=== PATIENT | female | born 1985 | race Caucasian/White ===

== ENCOUNTER 2024-01-08 09:30 | Day surgery (SDC) | payer OTHER ==
[~2024-01-08] VITALS: Ht 165.1 cm; Wt 76.0 kg
[~2024-01-08 09:30] MED LIST: EXCETAB32 PO; LIDOCAINE 2% 100MG/5ML SDV (FOR ANES.) As Ordered ONE; MIDAZOLAM INJ 2MG/2ML VIAL As Ordered ONE; ONDANSETRON 4MG 2ML VIAL As Ordered ONE; ROCURONIUM BROMIDE 50MG/5ML VIAL As Ordered ONE; fentaNYL 100 MCG/2 ML INJECTION As Ordered ONE; propofoL 200 MG/20 ML VIAL As Ordered ONE
[2024-01-08] MEDS ORDERED: LR 1,000 ML IV SCH ×2 (09:35→13:10)
[2024-01-08] MEDS ORDERED: SUGAMMADEX SODIUM 500 MG/5 ML VIAL (BRIDION) As Ordered ONE (09:37)
[2024-01-08] MEDS ORDERED: KETOROLAC 60MG 2ML VIAL As Ordered ONE (09:37)
[2024-01-08] MEDS ORDERED: ACETAMINOPHEN 1000MG 100ML IV BAG As Ordered ONE (09:37)
[2024-01-08] MEDS: OXYMETAZOLINE 0.05% NASAL SPRAY (AFRIN) As Ordered ONE (10:50)
[2024-01-08] MEDS: AMPICILLIN SOD/SULBACTAM SOD 3 GM in D5W MINI-BAG PLUS 100 ML IV ONE (10:56)
[2024-01-08] MEDS: LIDOCAINE 2% W/ EPINEPHRINE 1.7 ML DENTAL INJ As Ordered ONE (11:22)
[2024-01-08] MEDS ORDERED: fentaNYL 100 MCG/2 ML INJECTION IV PRN (13:10)
[2024-01-08] MEDS ORDERED: HYDROMORPHONE HCL 0.5 MG/ 0.5 ML SYRINGE IV PRN (13:10)
[2024-01-08] MEDS ORDERED: ONDANSETRON 4MG 2ML VIAL IV PRN (13:10)
[2024-01-08] MEDS: oxyCODONE 5MG TAB PO PRN (13:57)
[2024-01-08 15:20] VITALS: BP 115/69; TEMP 97.2; O2SAT 97
== END 2024-01-08 15:30 | disposition home or self-care (01) ==
LOC: M SDC 09:30
PROVIDERS: ATTEND Dentist
DX: K02.9 Dental caries, unspecified (principal); M27.0 Developmental disorders of jaws; Z91.018 Allergy to other foods; Z91.040 Latex allergy status; Z88.2 Allergy status to sulfonamides; F17.290 Nicotine dependence, other tobacco product, uncomplicated
CPT/HCPCS: 88300; C9290; D7140; D7210; D7473; J0131; J0295; J1100; J1885; J2250; J2405; J3010

== ENCOUNTER 2024-06-05 06:00 | Day surgery (SDC) | payer OTHER ==
[~2024-06-05] VITALS: Ht 165.1 cm; Wt 76.6 kg
[~2024-06-05 06:00] MED LIST changes: -LIDOCAINE 2% 100MG/5ML SDV (FOR ANES.) As Ordered ONE; -MIDAZOLAM INJ 2MG/2ML VIAL As Ordered ONE; -ONDANSETRON 4MG 2ML VIAL As Ordered ONE; -ROCURONIUM BROMIDE 50MG/5ML VIAL As Ordered ONE; -fentaNYL 100 MCG/2 ML INJECTION As Ordered ONE; -propofoL 200 MG/20 ML VIAL As Ordered ONE
[2024-06-05 06:30] LABS: HEMATOCRIT 37.4 % (36.0-47.0); HEMOGLOBIN 12.4 g/dl (12.0-15.5); MEAN CORPUSCULAR HEMOGLOBIN 28.9 pg (27.0-33.0); MEAN CORPUSCULAR HGB CONC 33.2 g/dl (32.0-36.5); MEAN CORPUSCULAR VOLUME 87.2 fl (80.0-96.0); PLATELET COUNT, AUTOMATED 418 10^3/uL (150-450); RED BLOOD COUNT 4.29 10^6/uL (4.00-5.40); WHITE BLOOD COUNT 8.7 10^3/uL (4.0-10.0)
[2024-06-05 06:44] LABS: INR 0.91; PARTIAL THROMBOPLASTIN TIME 34.5 SECONDS (24.8-34.2); PROTHROMBIN TIME 12.6 SECONDS (12.5-14.5)
[2024-06-05] MEDS ORDERED: NS (Normal Saline) 0.9% 1,000 ML IV SCH ×2 (06:45→09:15)
[2024-06-05] MEDS ORDERED: ROCURONIUM BROMIDE 50MG/5ML VIAL As Ordered ONE (07:15)
[2024-06-05] MEDS ORDERED: MIDAZOLAM INJ 2MG/2ML VIAL As Ordered ONE (07:15)
[2024-06-05] MEDS ORDERED: propofoL 200 MG/20 ML VIAL As Ordered ONE (07:15)
[2024-06-05] MEDS ORDERED: ONDANSETRON 4MG 2ML VIAL As Ordered ONE (07:15)
[2024-06-05] MEDS ORDERED: LIDOCAINE 2% 100MG/5ML SDV (FOR ANES.) As Ordered ONE (07:15)
[2024-06-05] MEDS ORDERED: fentaNYL 100 MCG/2 ML INJECTION As Ordered ONE (07:16)
[2024-06-05] MEDS ORDERED: KETOROLAC 60MG 2ML VIAL As Ordered ONE (07:16)
[2024-06-05] MEDS ORDERED: SUGAMMADEX SODIUM 500 MG/5 ML VIAL (BRIDION) As Ordered ONE (07:16)
[2024-06-05] MEDS ORDERED: ACETAMINOPHEN 1000MG/100ML IV BAG As Ordered ONE (07:16)
[2024-06-05] MEDS: ceFAZolin SOD 2 GM in IV 1 EA IV ONE (07:38)
[2024-06-05] MEDS ORDERED: METOCLOPRAMIDE INJ 10MG/2ML VIAL As Ordered ONE (08:03)
[2024-06-05] MEDS ORDERED: dexmedeTOMIDine (4MCG/ML)200MCG/50ML BTL (PRECEDEX) As Ordered ONE (08:22)
[2024-06-05] MEDS: METHYLENE BLUE 0.5% (5MG/ML) 10 ML AMP (PROVAYBLUE) As Ordered ONE (09:14)
[2024-06-05] MEDS ORDERED: fentaNYL 100 MCG/2 ML INJECTION IV PRN (09:15)
[2024-06-05] MEDS: HYDROMORPHONE HCL 0.5 MG/ 0.5 ML SYRINGE IV PRN (09:39)
[2024-06-05] MEDS: ONDANSETRON 4MG 2ML VIAL IV PRN (09:50)
[2024-06-05] MEDS ORDERED: IBUP-1022 PO (09:54)
[2024-06-05] MEDS ORDERED: COLA100C5 PO (09:54)
[2024-06-05] MEDS ORDERED: OXYC1TAB23 PO (09:55)
[2024-06-05] MEDS ORDERED: LR 1,000 ML IV SCH (10:10)
[2024-06-05] MEDS ORDERED: PERCOCET 5MG/325MG TAB PO PRN (10:10)
[2024-06-05] MEDS: oxyCODONE 5MG TAB PO PRN (10:30)
[2024-06-05 12:15] VITALS: BP 125/71; TEMP 98.2; O2SAT 97
== END 2024-06-05 12:31 | disposition home or self-care (01) ==
LOC: M SDC 06:00
PROVIDERS: ATTEND Specialist
DX: N80.329 Endometriosis of the posterior cul-de-sac, unspecified depth (principal); N83.02 Follicular cyst of left ovary; N83.01 Follicular cyst of right ovary; N83.12 Corpus luteum cyst of left ovary; N83.11 Corpus luteum cyst of right ovary; N39.3 Stress incontinence (female) (male); R10.2 Pelvic and perineal pain; Z86.73 Personal history of transient ischemic attack (TIA), and cerebral infarction without residual deficits; Z88.5 Allergy status to narcotic agent; Z88.2 Allergy status to sulfonamides; Z91.018 Allergy to other foods; Z91.040 Latex allergy status; Z91.048 Other nonmedicinal substance allergy status
CPT/HCPCS: 57288; 58571; 81025; 82330; 82947; 84132; 84295; 85014; 85027; 85610; 85730; 86850; 86900; 86901; 88307; C1771; J0131; J0665; J0690; J1100; J1171; J1885; J2250; J2405; J2765; J3010; S2900

== ENCOUNTER → 2024-06-11 | Outpatient (REF) | payer OTHER ==
[~2024-06-11] MED LIST changes: +COLA100C5 PO; +IBUP-1022 PO; +OXYC1TAB23 PO
== END ==
LOC: M SFHCWAGY 12:45
PROVIDERS: ATTEND Specialist
DX: N39.0 Urinary tract infection, site not specified (principal)

== ENCOUNTER 2024-06-24 02:04 | Emergency (ER) | payer OTHER ==
[~2024-06-24] VITALS: Ht 165.1 cm; Wt 72.6 kg
[2024-06-24 02:53] LABS: BASO # 0.1 10^3/uL (0.0-0.2); BASO % 0.4 % (0.0-1.0); EOS # 0.1 10^3/uL (0.0-0.5); EOS % 0.9 % (0.0-3.0); HEMATOCRIT 34.9 % (36.0-47.0); HEMOGLOBIN 11.4 g/dl (12.0-15.5); LYMPH # 1.1 10^3/uL (1.5-5.0); LYMPH % 6.9 % (24.0-44.0); MEAN CORPUSCULAR HEMOGLOBIN 28.7 pg (27.0-33.0); MEAN CORPUSCULAR HGB CONC 32.7 g/dl (32.0-36.5); MEAN CORPUSCULAR VOLUME 87.9 fl (80.0-96.0); MONO # 0.5 10^3/uL (0.0-0.8); NEUTROPHILS % 88.5 % (36.0-66.0); PLATELET COUNT, AUTOMATED 485 10^3/uL (150-450); RED BLOOD COUNT 3.97 10^6/uL (4.00-5.40); WHITE BLOOD COUNT 15.8 10^3/uL (4.0-10.0)
[2024-06-24 03:11] LABS: LIPASE 57 U/L (12-53)
[2024-06-24 03:14] LABS: ALKALINE PHOSPHATASE 76 U/L (35-104); ALT/SGPT 25 U/L (7.0-40); AST/SGOT 41 U/L (<34); BILIRUBIN,DIRECT 0.2 MG/DL (<0.4); BILIRUBIN,TOTAL 0.6 MG/DL (0.3-1.2); BLOOD UREA NITROGEN 11 MG/DL (9-23); CALCIUM LEVEL 9.2 MG/DL (8.5-10.1); CARBON DIOXIDE LEVEL 25 MMOL/L (20-31); CHLORIDE LEVEL 105 MMOL/L (98-107); CREATININE FOR GFR 0.82 MG/DL (0.55-1.30); GLOMERULAR FILTRATION RATE > 60.0 (>60); GLUCOSE, FASTING 221 MG/DL (60-100); POTASSIUM SERUM 3.7 MMOL/L (3.5-5.1); SODIUM LEVEL 141 MMOL/L (136-145); TOTAL PROTEIN 7.3 G/DL (5.7-8.2)
[2024-06-24] MEDS: KETOROLAC 30 MG/ML 1ML VIAL IV ONE (06:28)
[2024-06-24] MEDS: NS 500 ML IV ONE (06:28)
[2024-06-24 06:42] LABS: KETONE, URINE AUTO RFX NEGATIVE (NEGATIVE); NITRITE, URINE AUTO RFX NEGATIVE (NEGATIVE); RBC, URINE AUTO RFX 0 /HPF (0-3); SQUAM EPITHELIAL CELL UR AURFX 1 /HPF (0-6); WBC, URINE AUTO RFX 2 /HPF (0-3)
[2024-06-24 06:56] LABS: LEUKOCYTE ESTERASE UR AUTO RFX 1+ (NEGATIVE)
[2024-06-24] MEDS ORDERED: ISOVUE-370 76% 100ML VIAL As Ordered ONE (07:21)
[2024-06-24] MEDS ORDERED: SIME1CAP4 PO (10:18)
[2024-06-24 10:20] VITALS: BP 103/66; TEMP 98.1; O2SAT 97
[2024-06-24] MEDS: SIMETHICONE 80MG CHEW TAB PO ONE (10:22)
== END 2024-06-24 10:25 | disposition home or self-care (01) ==
LOC: M ED 02:04
DX: R10.84 Generalized abdominal pain (principal); E73.9 Lactose intolerance, unspecified; E04.1 Nontoxic single thyroid nodule; Z79.899 Other long term (current) drug therapy; Z88.2 Allergy status to sulfonamides; Z88.8 Allergy status to other drugs, medicaments and biological substances; Z91.040 Latex allergy status; Z91.018 Allergy to other foods
CPT/HCPCS: 71275; 74177; 80048; 80076; 81001; 83690; 85025; 87040; 87086; 96374; 99284; J1885; Q9967

== ENCOUNTER → 2024-09-19 | Outpatient (REF) | payer OTHER ==
[~2024-09-19] MED LIST changes: +SIME1CAP4 PO
== END ==
LOC: M PLALAB 08:23
PROVIDERS: ATTEND Specialist
DX: R30.0 Dysuria (principal)

== ENCOUNTER → 2024-12-04 | Outpatient (CLI) | payer OTHER ==
[2024-12-04 14:04] LABS: FREE T4 1.18 NG/DL (0.89-1.76)
[2024-12-04 14:06] LABS: THYROID PEROXIDASE ANTIBODY < 28.0 U/ML (<60.0); TOTAL T3 154.0 NG/DL (60.0-181.0)
== END ==
LOC: M PLALAB 10:52
PROVIDERS: ATTEND Nurse Practitioner Family
DX: E05.00 Thyrotoxicosis with diffuse goiter without thyrotoxic crisis or storm (principal)

== ENCOUNTER 2025-02-27 09:40 | Day surgery (SDC) | payer OTHER ==
[~2025-02-27] VITALS: Ht 162.6 cm; Wt 79.8 kg
[~2025-02-27 09:40] MED LIST changes: -IBUP-1022 PO; +IBUP600T42 PO; +KETOROLAC 30 MG/ML 1 ML VIAL As Ordered ONE; +LIDOCAINE 2% 100 MG/5 ML SDV (FOR ANES.) As Ordered ONE; +MIDAZOLAM INJ 2 MG/2 ML VIAL As Ordered ONE; +ONDANSETRON 4MG/2ML VIAL As Ordered ONE; +dexAMETHasone 4 MG/ML 1 ML VIAL As Ordered ONE
[2025-02-27] MEDS: LR 1,000 ML IV SCH (10:05)
[2025-02-27] MEDS ORDERED: LIDOCAINE 1% SDV 5 ML VIAL SC PRN (10:05)
[2025-02-27 10:24] LABS: PLATELET COUNT, AUTOMATED 449 10^3/uL (150-450)
[2025-02-27] MEDS ORDERED: LIDOCAINE 1% SDV 30 ML VIAL As Ordered ONE (11:55)
[2025-02-27] MEDS ORDERED: SUCCINYLCHOLINE 100MG/5ML SYRINGE As Ordered ONE (12:11)
[2025-02-27] MEDS: ceFAZolin SOD 2 GM IV ONCE IV ONE (12:15)
[2025-02-27] MEDS ORDERED: ROCURONIUM BROMIDE 50MG/5ML VIAL As Ordered ONE (12:17)
[2025-02-27] MEDS ORDERED: SUGAMMADEX SODIUM 200 MG/2 ML VIAL As Ordered ONE (12:30)
[2025-02-27] MEDS ORDERED: ONDANSETRON 4MG/2ML VIAL IV PRN (13:50)
[2025-02-27] MEDS ORDERED: HYDROMORPHONE HCL 0.5 MG/0.5 ML SYRINGE IV PRN (13:50)
[2025-02-27] MEDS ORDERED: LR 1,000 ML IV SCH (13:50)
[2025-02-27 14:30] VITALS: BP 115/79; TEMP 96.8; O2SAT 98
== END 2025-02-27 15:05 | disposition home or self-care (01) ==
LOC: M SDC 09:40
PROVIDERS: ATTEND Specialist
DX: T83.711A Erosion of implanted vaginal mesh to surrounding organ or tissue, initial encounter (principal); Y76.2 Prosthetic and other implants, materials and accessory obstetric and gynecological devices associated with adverse incidents; Z91.018 Allergy to other foods; Z91.040 Latex allergy status; Z88.2 Allergy status to sulfonamides; Z88.8 Allergy status to other drugs, medicaments and biological substances; F17.290 Nicotine dependence, other tobacco product, uncomplicated
CPT/HCPCS: 36415; 57295; 85027; 88300; J0330; J0688; J1100; J1885; J2250; J2405; J3010